=== PATIENT | female | born 1980 ===

== ENCOUNTER 2021-11-12 15:23 | Outpatient (CLI) | payer OTHER | END 2021-11-12 16:41 | disposition home or self-care (01) | LOC: PRENATAL 15:23 | PROVIDERS: ATTEND Obstetrics & Gynecology Maternal & Fetal Medicine | DX: O36.80X0 Pregnancy with inconclusive fetal viability, not applicable or unspecified (principal); Z3A.13 13 weeks gestation of pregnancy; O09.519 Supervision of elderly primigravida, unspecified trimester; O21.0 Mild hyperemesis gravidarum ==

== ENCOUNTER 2022-04-18 12:59 | Inpatient (IN) | payer OTHER ==
[~2022-04-18] VITALS: Ht 167.6 cm; Wt 71.7 kg
[2022-04-18] MEDS ORDERED: PRENATAL TABLE1 EAC1 PO (13:36)
[2022-04-18] MEDS ORDERED: FOLIC ACID20 MG PO (13:36)
[2022-04-18] MEDS ORDERED: CHILDREN'S ASPI81 MG PO (13:37)
[2022-04-20] MEDS ORDERED: NIFE60TA3 PO (15:25)
== END 2022-04-20 18:24 | disposition home or self-care (01) | DRG 833 ==
LOC: LDR 12:59
PROVIDERS: ADMIT Obstetrics & Gynecology; ATTEND Obstetrics & Gynecology
PROC: 4A1HXCZ Monitoring of Products of Conception, Cardiac Rate, External Approach (ICD-10-PCS; principal; 2022-04-18)
PROC: BY4FZZZ Ultrasonography of Third Trimester, Single Fetus (ICD-10-PCS; 2022-04-18)
DX: O13.3 Gestational [pregnancy-induced] hypertension without significant proteinuria, third trimester (principal); O26.843 Uterine size-date discrepancy, third trimester; O36.8130 Decreased fetal movements, third trimester, not applicable or unspecified; Z3A.35 35 weeks gestation of pregnancy

== ENCOUNTER 2022-04-24 10:19 | Inpatient (IN) | payer OTHER ==
[~2022-04-24] VITALS: Ht 167.6 cm; Wt 74.4 kg
[~2022-04-24 10:19] MED LIST: CHILDREN'S ASPI81 MG PO; FOLIC ACID20 MG PO; NIFE60TA3 PO; PRENATAL TABLE1 EAC1 PO
== END 2022-04-29 19:00 | disposition home or self-care (01) | DRG 807 ==
LOC: OB/GYN 10:19 → LDR 10:19 → OB/GYN 22:12
PROVIDERS: ADMIT Obstetrics & Gynecology; ATTEND Obstetrics & Gynecology
PROC: 10E0XZZ Delivery of Products of Conception, External Approach (ICD-10-PCS; principal; 2022-04-24)
PROC: 0KQM0ZZ Repair Perineum Muscle, Open Approach (ICD-10-PCS; 2022-04-24)
PROC: 4A1HXCZ Monitoring of Products of Conception, Cardiac Rate, External Approach (ICD-10-PCS; 2022-04-24)
DX: O70.1 Second degree perineal laceration during delivery (principal); Z37.0 Single live birth; O14.24 HELLP syndrome, complicating childbirth; Z3A.36 36 weeks gestation of pregnancy; Z20.822 Contact with and (suspected) exposure to COVID-19